=== PATIENT | male | born 2000 | race Caucasian/White ===

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

== ENCOUNTER → 2019-05-29 | Outpatient (CLI) | payer OTHER ==
--- NOTE | 2019-05-29 13:44 | CT ---
EXAMINATION TYPE: CT brain wo/w con DATE OF EXAM: 05/29/2019 COMPARISON: None HISTORY: Patient complains of 4 syncopal episodes, memory loss, headache and increased tinnitus/verti go over past [address] DLP: 2035.8 mGycm Automated Exposure Control for Dose Reduction was Utilized. TECHNIQUE: CT scan of the head is performed with IV contrast.,CT scan of the head is performed withou t and with without and with IV Contrast, patient injected with 100 mL of Isovue M300. CLINICAL HISTORY: COMPARISON: None. FINDINGS: Noncontrast images show no acute intracranial hemorrhage or midline shift. The ventricles and sulci are within normal limits in size. Postcontrast images show no suspicious enhancing intrapa renchymal mass. The globes are intact and there are changes of chronic sinusitis. IMPRESSION: 1. Negative contrast enhanced head CT exam. If symptoms persist consider MRI. 2. Changes of chronic sinusitis.
== END | disposition home or self-care (01) ==
LOC: RADCTMAIN 13:04
PROVIDERS: ATTEND Family Medicine
DX: J32.9 Chronic sinusitis, unspecified (principal)
CPT/HCPCS: 70470; Q9967

== ENCOUNTER → 2019-05-30 | Outpatient (CLI) | payer OTHER ==
--- NOTE | 2019-06-03 13:55 | HM ---
HOLTER MONITOR REPORT INDICATION: Arrhythmia. The patient was monitored for 24 hours. The baseline rhythm seems to be sinus with a minimum heart rate of 44, maximum 136 and average 73 beats per minute. Ventricular ectopic events and supraventricular ectopic events were seen rarely during this 24 hour monitoring. No evidence of any sinus pause or sinus arrest. No diary was attached to the study. CONCLUSION: 1. Sinus rhythm as a baseline mechanism. 2. No evidence of any ventricular ectopic events. 3. Rare supraventricular ectopic events. 4. No evidence of any tachy or bradyarrhythmia noted. 5. No evidence of sinus pause or sinus arrest. 6. The patient did not have any diary attached to the study. MMODL / IJN: [id number] /
== END | disposition home or self-care (01) ==
LOC: RADECHMAIN 12:16
PROVIDERS: ATTEND Family Medicine
DX: I47.1 Supraventricular tachycardia (principal)
CPT/HCPCS: 93225; 93226

== ENCOUNTER → 2019-05-31 | Outpatient (CLI) | payer OTHER ==
--- NOTE | 2019-06-01 08:33 | ECHOF ---
Referral Reason:[id number] syncope and collapse MEASUREMENTS -------- HEIGHT: 170.2 cm WEIGHT: 59.0 kg BP: RVIDd: 2.7 cm (< 3.3) IVSd: 0.8 cm (0.6 - 1.1) LVIDd: 4.5 cm (3.9 - 5.3) LVPWd: 1.1 cm (0.6 - 1.1) IVSs: 1.3 cm LVIDs: 3.1 cm LVPWs: 1.4 cm LA Diam: 3.0 cm (2.7 - 3.8) Ao Diam: 2.7 cm (2.0 - 3.7) AV Cusp: 1.7 cm (1.5 - 2.6) MV EXCURSION: 24.729 mm (> 18.000) MV EF SLOPE: 179 mm/s (70 - 150) EPSS: 0.3 cm MV E Atul: 0.74 m/s MV DecT: 202 ms MV A Atul: 0.69 m/s MV E/A Ratio: 1.08 RAP: 5.00 mmHg RVSP: 13.19 mmHg FINDINGS -------- Sinus rhythm. This was a technically good study. LV size, wall thickness and systolic function are normal, with an EF greater than 55%. The diastoli c filling pattern is normal for the age of the patient 5.55. The right ventricle is normal in size. The left atrial size is normal. The right atrial size is normal. The aortic valve is trileaflet, and appears structurally normal. No aortic stenosis or regurgitation. There is trace mitral regurgitation. Mild tricuspid regurgitation present. Right ventricular systolic pressure is normal at < 35 mmHg. There is no evidence of pulmonary hypertension. Trace/mild (physiologic) pulmonic regurgitation. The aortic root size is normal. There is no pericardial effusion. CONCLUSIONS -------- 1. Sinus rhythm. 2. This was a technically good study. 3. LV size, wall thickness and systolic function are normal, with an EF greater than 55%. 4. The diastolic filling pattern is normal for the age of the patient 5.55 5. The right ventricle is normal in size. 6. The left atrial size is normal. 7. The right atrial size is normal. 8. The aortic valve is trileaflet, and appears structurally normal. No aortic stenosis or regurgitati on. 9. There is trace mitral regurgitation. 10. Mild tricuspid regurgitation present. 11. Right ventricular systolic pressure is normal at < 35 mmHg. 12. There is no evidence of pulmonary hypertension. 13. Trace/mild (physiologic) pulmonic regurgitation. 14. The aortic root size is normal. 15. There is no pericardial effusion. KELLER MACHINE OPERATOR: Hillary Ball RDCS
== END | disposition home or self-care (01) ==
LOC: RADECHMAIN 13:04
PROVIDERS: ATTEND Family Medicine
DX: I07.1 Rheumatic tricuspid insufficiency (principal); I37.1 Nonrheumatic pulmonary valve insufficiency
CPT/HCPCS: 93306

== ENCOUNTER → 2020-02-04 | Outpatient (CLI) | payer OTHER | END | disposition home or self-care (01) | LOC: LABWHC1 11:33 | PROVIDERS: ATTEND Nurse Practitioner Family | DX: Z20.828 Contact with and (suspected) exposure to other viral communicable diseases (principal) | CPT/HCPCS: U0003; C9803 ==

== ENCOUNTER → 2020-02-14 | Outpatient (CLI) | payer OTHER ==
--- NOTE | 2020-02-14 11:44 | US ---
EXAMINATION TYPE: US venous doppler duplex UE RT DATE OF EXAM: 02/14/2020 COMPARISON: NONE CLINICAL HISTORY: I82.609 Acute embolism and thrombosis of. Discoloration that lasted briefly and pain. SIDE PERFORMED: Right Right Arm: Negative for DVT IMPRESSION: 1. Right upper extremity ultrasound negative for deep venous thrombosis
== END | disposition home or self-care (01) ==
LOC: RADUSWWP 10:39
PROVIDERS: ATTEND Family Medicine
DX: I82.621 Acute embolism and thrombosis of deep veins of right upper extremity (principal)